=== PATIENT | female | born 1995 | race Caucasian/White ===

== ENCOUNTER 2021-03-24 19:41 | Emergency (ER) | payer OTHER ==
[~2021-03-24] VITALS: Ht 160 cm; Wt 72.6 kg
[~2021-03-24 19:41] MED LIST: IBUPROFEN200 M2; ROBITUSSIN100 MG/52
[2021-03-24] MEDS ORDERED: PROMETHAZI6.25 MG/5 PO (20:26)
[2021-03-24] MEDS ORDERED: TESSALON PERLE100 MG PO (20:26)
[2021-03-24] MEDS ORDERED: APAP W/CODEINE1 TA2 PO (20:26)
[2021-03-24 20:31] VITALS: BP 115/70
== END 2021-03-24 20:32 | disposition home or self-care (01) ==
LOC: M.ERS 19:41
DX: J06.9 Acute upper respiratory infection, unspecified (principal); Z20.822 Contact with and (suspected) exposure to COVID-19